=== PATIENT | male | born 1950 | race Caucasian/White ===

== ENCOUNTER → 2016-04-24 | Outpatient (CLI) | payer OTHER, MEDICARE ==
[~2016-04-24] VITALS: Ht 180.3 cm; Wt 89.2 kg
[~2016-04-24] MED LIST: ADULT LOW DOSE81 MG PO; ANDRODERM TD; CALCIUM 500 +1 EAC5 PO; CELEXA40 MG PO; CIALIS10 MG PO; COMPOUND PAIN CREAM; COUMADIN 4 MG TA4 M1 PO; CRESTOR10 MG PO; CYCLOBENZAPRINE5 MG PO; DESYREL50 MG PO; DOXYCYCLINE 10100 MG PO; EFFEXOR XR75 MG PO; ENDOCET 10-3251 EACH PO; ENDOCET 7.5-321 EACH PO; FLEXERIL PO; GABAPENTIN PO; GABAPENTIN100 MG PO; HYDROMORPHONE; INTRATHECAL MED; LASIX 20 MG TAB20 MG PO; LASIX 40 MG TAB40 M2 PO; LIDODERM 5%1 PATC1 TRANSDERM; LIPITOR40 MG PO; LOPRESSOR 50 MG50 M1 PO; MOBIC7.5 MG PO; NEPHROCAPS SOFT1 CAP PO; NEURONTIN 300300 M1 PO; NEURONTIN600 MG PO; NICOTROL INHAL1 CAR1 IH; NITROQUICK0.4 MG SL; NORCO 7.5-3251 EACH PO; NYSTATIN 1100000 U/M SW&SWALLOW; OXYCODONE-ACET1 EAC2 PO; PERCOCET 10-321 EACH PO; PERIDEX15 ML MM; PLAVIX 75 MG TA75 MG PO; PRILOSEC40 MG PO; PROTONIX40 M1 PO; REMERON 30 MG T30 M1 PO; REMERON15 MG PO; SPIRIVA INH; SPIRONOLACT/HCT1 TA1 PO; SYMBICORT80 MCG/4.1 INH; TAMSULOSIN HCL0.4 MG PO; TIZANIDINE HCL4 M1 PO; TIZANIDINE HCL4 MG PO; TOPROL XL25 MG PO; VITAMIN D1000 UNI1 PO; VOLTAREN100 GM TP; WELLBUTRIN SR150 MG PO; XANAX 0.5 MG0.5 M1 PO; ZETIA10 MG PO; ZYBAN150 MG PO
--- NOTE | ~2016-04-24 | HPC ---
[facility] [place] [address] PAIN MANAGEMENT CONSULTATION Name: BRUNO GAYLE [id number] Admission: 04/24/16 Attend Phys: Montez Huber MD Discharge: Date of : 54 Report #: [id number] THIS REPORT FOR: //name// CC: Bennie Huber DATE OF SERVICE: 04/24/2016 Followup visit for chronic pain. The patient has multiple pain generators. Complains of bilateral knee pain with osteoarthritis, complains of chronic low back pain with spondylosis status post surgery, complains of pain into his legs, which is ischemic with poor vascular condition and he continues to smoke. He also has debility generally from cardiac disease. He has an intrathecal pump, which has been helpful in providing major reductions in his day to day pain and he also takes some oral supplement medication gabapentin 600 mg 3 times a day for neuropathic pain and peripheral neuropathy, oxycodone supplementing 1-2 tablets a day to his intrathecal pump, cyclobenzaprine 1-3 tablets a day and he is on antidepressants, venlafaxine, Wellbutrin and takes alprazolam on occasion for severe anxiety. Medications provided by our clinic are the intrathecal drugs as well as gabapentin and the oxycodone. He is under an opioid agreement, which were reviewed in detail today, discussing the importance of safeguarding medication. Today, he reports his pain as an 8-9/10. This is a typical number for the patient who has chronic pain and is someone who does not take very good care of himself. Pain is worse with activities, so he and his stay in house a lot. She also has vascular issues as well. They do not get out to socialize much to dinner or to restoration or other social gatherings. He sees several physicians. PAST MEDICAL HISTORY: Significant for bilateral knee arthroscopies. He has chronic knee pain. He has coronary artery disease followed by Dr. Salgado. He has had angioplasty with stent in 2006. Reportedly has up to 70% blockage bilaterally in lower extremities. He suffers from cataracts. His only joint replacement is the left hip replacement performed in 2009, which was helpful. PHYSICAL EXAMINATION: He is disheveled, depressed affect, moves very slowly walking with cane. His blood pressure is 107/64, heart rate 69, respirations are 14. He is afebrile, 5 feet 11 inches, 196 pounds, BMI of 27.4. When asked to walk in the bruce, he is able to get up and down from a chair independently, but uses a cane for stability. Gait is very slow and shuffling. Examination of the chest reveals normal breath sounds. No inspiratory and expiratory wheezing. Distant sounds are noted in the bases. Cardiac rhythm is regular. Examination of the spine reveals tenderness across the lumbosacral segment. There is pain [address] [address] PAIN MANAGEMENT CONSULTATION Name: BRUNO GAYLE Room #: REG [facility] Mackey#: [id number] Admission: 04/24/16 Attend Phys: Montez Huber MD Discharge: Date of : 54 Report #: [id number] with forward flexion, extension, rotation, and [id number] tilt. Pain is mostly across the axial spine. He also has pain in multiple joints including shoulders, elbows, wrist, knees, hips. He has some restrictions of movement of the lower extremities due to arthropathy. Myofascial tenderness is noted throughout. IMPRESSION: 1. Chronic intractable back pain with spondylosis. 2. Multiple joint osteoarthritis involving knees, hips, shoulders. 3. 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 4. Status post left hip replacement. 5. Management of intrathecal infusion pump with refill today. 6. Management of high risk medications under opioid agreement terms reviewed today and urine drug screen ordered. The patient was counseled again today about smoking cessation and some helpful suggestions were offered. Literature has been provided in the past. DESCRIPTION OF PROCEDURE: Skin was prepped with ChloraPrep, skin anesthetized, 22-gauge non-coring needle advanced in the pump. Old medication removed and discarded. Pump was refilled with a combination of hydromorphone, clonidine, and fentanyl. Reprogramming session was performed. EDELMIRA is now 14 months, will need new pump about a year from now. His low reservoir alarm date for his next refill is on June 14. This may extend out some with the use of his PTM device. He knows how to watch this and we will try to bring him as close to that date as we can. Followup visit is planned in 3 months. <ELECTRONICALLY SIGNED> By: Montez Huber MD 05/25/16 1130 [id number] Montez Huber MD /nt
[2016-04-24 09:17] VITALS: BP 107/64
[2016-04-29 20:10] LABS: EER PAIN MGT INTERP FINAL (())
== END | disposition home or self-care (01) ==
LOC: PAIN 07:02
PROVIDERS: Anesthesiology Pain Medicine
DX: M47.896 Other spondylosis, lumbar region (principal); G89.29 Other chronic pain; M19.90 Unspecified osteoarthritis, unspecified site; M31.9 Necrotizing vasculopathy, unspecified; I73.9 Peripheral vascular disease, unspecified; Z96.642 Presence of left artificial hip joint; Z87.891 Personal history of nicotine dependence

== ENCOUNTER → 2016-08-12 | Outpatient (CLI) | payer OTHER, MEDICARE ==
[~2016-08-12] VITALS: Ht 180.3 cm; Wt 92.1 kg
--- NOTE | ~2016-08-12 | HPC ---
[facility] [address] [place] [address] PAIN MANAGEMENT CONSULTATION Name: BRUNO GAYLE Room #: REG [facility] Fabian.#: [id number] Admission: 08/12/16 Attend Phys: Montez Huber MD Discharge: Date of : 54 Report #: [id number] THIS REPORT FOR: //name// CC: Bennie Huber DATE OF REGISTRATION: 08/12/2016. Followup visit for management of intrathecal infusion pump. The patient returns to pain clinic today for refill of his intrathecal infusion pump, which currently is providing a combination of clonidine, hydromorphone, fentanyl. He also has a PTM device. No adjustment in dose will be necessary today. In addition to his intrathecal pump I provided him with a small amount of adjunct medication, which includes gabapentin 600 mg t.i.d. and uses Percocet 10/325 one half to one tablet b.i.d. His refill interval between intrathecal pump, there refill interval for his intrathecal pump was about 60 as I have agreed to provide him with 120 hydrocodone tablets 1 tablet q. 6 hours, costs prescriptions for him. He feels is expensive, although is only about 25 dollars. This is lot of money to he and his were both struggling with chronic illness. SOCIAL HISTORY: His recent illness has kept her in [facility]. She was threatened with an amputation, but has had some good wound healing and is coming in soon. He is hopeful that this will improve his day-to-day activities and look forward having her back home. Both quit smoking. PHYSICAL EXAMINATION: GENERAL: Pleasant, alert and oriented. He does not appear overmedicated, anxious or depressed today. VITAL SIGNS: His blood pressure is 128/67, heart rate 78, respirations 16. MUSCULOSKELETAL: He moves easily from sitting to standing position, ambulates. He has antalgic features. He has pain across his low back and tenderness. He has swelling and tenderness of his left knee. Bilateral feet reveal allodynia consistent with peripheral neuropathy and/or radiculopathy. IMPRESSION: 1. Chronic intractable low back pain with spondylosis. 2. Multiple joint arthritis. 3. Vasculopathy with history of coronary stents and peripheral vascular disease. He has both peripheral neuropathy as well as vascular pain with claudication. 4. Management of intrathecal pump with refill. 5. Management of high risk medication. Percocet a small dose for breakthrough [facility] [address] [place] [address] PAIN MANAGEMENT CONSULTATION Name: BRUNO GAYLE Room #: REG [facility] Florencio#: [id number] Admission: 08/12/16 Attend Phys: Montez Huber MD Discharge: Date of : 54 Report #: [id number] pain. Currently on covered by his intrathecal pump. We reviewed the terms of his opioid agreement and stressed the importance of safeguarding all medications, taking them as prescribed. Opioid crisis in [place] was discussed briefly as well as CDC guidelines. He has heard this discussion before. PROCEDURE: Refill of intrathecal infusion pump. The patient was placed in the supine position, skin prepped with ChloraPrep. Skin anesthetized and a 22-gauge needle advanced into the intrathecal pump. Old medication removed and discarded. It was refilled with a combination clonidine, hydromorphone, and fentanyl. Reprogramming session was performed. His next refill is on 09/30/2016 or longer given his PTM and I will see him back at that time. Prescriptions were provided again under terms of our agreement. By: [id number] Montez Huber MD /nt
[2016-08-12 09:58] VITALS: BP 128/67
== END ==
LOC: PAIN 07:35
DX: G89.29 Other chronic pain (principal); M19.90 Unspecified osteoarthritis, unspecified site; Z87.891 Personal history of nicotine dependence; M47.9 Spondylosis, unspecified

== ENCOUNTER → 2016-10-03 | Outpatient (CLI) | payer OTHER, MEDICARE ==
[~2016-10-03] VITALS: Ht 180.3 cm; Wt 93.7 kg
[~2016-10-03] MED LIST changes: +POTASSIUM20 PO
--- NOTE | ~2016-10-03 | HPC ---
[facility] [address] [address] PAIN MANAGEMENT CONSULTATION Name: BRUNO GAYLE Room #: REG [facility] Fabian.#: [id number] Admission: 10/03/16 Attend Phys: Montez Huber MD Discharge: Date of : 54 Report #: [id number] THIS REPORT FOR: //name// CC: Bennie Huber DATE OF SERVICE: 10/03/2016 Followup visit for management of intrathecal infusion pump. The patient returns to pain clinic today for renewal of medication in his pump. He is on a complex infusion, which includes clonidine, fentanyl and hydromorphone. The fentanyl added to provide better relief on a rapid action has been useful and he has been on this regimen now for many years. He is in the period of time now where he needs to have his intrathecal pump replaced. He has about 9 months remaining. I have recommended that he follow with [facility] for replacement of his pump and the information has been provided to the patient to make a phone call to their office. Today, he reports that his pain is adequately controlled. He runs a pain score typically 7-8, it is unchanged. Most of his pain is in his back, but he also has arthritic pain in his left knee and also in his feet. The pain in his feet is likely neuropathic. Clonidine was helpful for that pain when it was added to the intrathecal pump. He has been given important information about safeguarding of oral medications, which I also provide him for supplementation of his intrathecal pump. This dose of breakthrough medication is small Percocet 10/325 no more than 1-2 tablets per day. Gabapentin 600 mg 3 times a day has been helpful in supplementing the pump for treatment of his neuropathic and radicular pain. Questions about general health and other physician visits are negative. He reports that he has had no significant changes since his last visit here. He does have coronary artery disease, follows with Dr. Salgado. His is with him today. She has had a wound infection, which become quite severe. She was in [facility] with a threatened knee amputation. She has had wound healing and doing better. It was really that event that encouraged him to finally quit smoking. PHYSICAL EXAMINATION: He is pleasant, alert, oriented, without signs of depression, anxiety or overmedication. Blood pressure is 134/88, heart rate is 80. Chest is clear. Cardiac rhythm is regular. He has mild tenderness across [facility] [address] [place] [address] PAIN MANAGEMENT CONSULTATION Name: BRUNO GAYLE Room #: REG [facility]#: [id number] Admission: 10/03/16 Attend Phys: Montez Huber MD Discharge: Date of : 54 Report #: [id number] his low back. From previous surgery, he has tenderness in both knees and in hips. Decreased sensation below the knee in a stocking distribution consistent with peripheral neuropathy. IMPRESSION: 1. Chronic intractable low back pain with spondylosis and radiculopathy. 2. Peripheral neuropathy. 3. Multi-joint arthritis including hips and knees. 4. Management of intrathecal infusion pump was refilled today and reprogramming. 5. Management of breakthrough oral medication under terms of an opioid agreement. 6. Vasculopathy status post coronary artery stenting procedure and peripheral vascular stent. PROCEDURE: Refill and reprogramming of intrathecal infusion pump. Skin was prepped with ChloraPrep. Skin anesthetized and a 22-gauge non-coring needle advanced in the pump. Old medication removed and discarded. Pump refilled with hydromorphone, fentanyl and clonidine. A reprogramming session was performed. He was given information regarding refill and also, we spent a little extra time today having him listen to the critical and noncritical alarms on his pump, so he will understand if the pump is acting up before we get it replaced. Discharge doses at maximum activation of his intrathecal pump are hydromorphone 7, clonidine 105 mcg, fentanyl 176 mcg per day. Followup visit planned in 1-2 months or he will be seen after pump exchanged by Dr. Mooney. By: [id number] Montez Huber MD /nt
[2016-10-03 11:12] VITALS: BP 127/61
== END | disposition home or self-care (01) ==
LOC: PAIN 06:42
DX: M47.26 Other spondylosis with radiculopathy, lumbar region (principal); G89.29 Other chronic pain; G62.9 Polyneuropathy, unspecified; M31.9 Necrotizing vasculopathy, unspecified; M19.90 Unspecified osteoarthritis, unspecified site; F11.20 Opioid dependence, uncomplicated; Z98.890 Other specified postprocedural states; Z87.891 Personal history of nicotine dependence; Z88.8 Allergy status to other drugs, medicaments and biological substances

== ENCOUNTER → 2016-11-20 | Outpatient (CLI) | payer OTHER, MEDICARE ==
[~2016-11-20] VITALS: Ht 180.3 cm; Wt 94.4 kg
[~2016-11-20] MED LIST changes: +ASPIRIN325 PO; +K-DUR10 MEQ PO
--- NOTE | ~2016-11-20 | HPC ---
[facility] [place] [place] [address] PAIN MANAGEMENT CONSULTATION Name: BRUNO GAYLE Room #: REG [facility].#: [id number] Admission: 11/20/16 Attend Phys: Benjamín Mathews MD Discharge: Date of : 54 Report #: [id number] THIS REPORT FOR: //name// CC: Bennie Mathews DATE OF SERVICE: 11/20/2016 FOLLOWUP COMPLAINT: Here for medication renewal. FOLLOWUP HISTORY: The patient is a 66-year-old gentleman who has been followed in the pain clinic by Dr. Montez Huber. The patient is on a complex medical infusion intrathecally of clonidine, fentanyl and hydromorphone. The patient states that this treatment course has been quite instrumental in helping him. He is able to do a lot more since he has had the intrathecal pump placement. He is scheduled within the next few days to undergo revision/replacement of the intrathecal pump. He is going to see Dr. Mooney at [facility] for replacement. Overall, he feels that things are going reasonably well and would like to have his medications renewed. He feels that the OxyContin and gabapentin are still quite efficacious and would like to have them renewed. He states that he keeps his medications in a controlled environment. PHYSICAL EXAMINATION: Blood pressure is 137/77, pulse 75, respiratory rate 16, room air saturation 95%. Height 5 feet 11 inches, weight 208 pounds, BMI is 29. The patient has not fallen. He does require some assistance with walking and standing. He uses a cane. IMPRESSION: 1. Chronic intractable back pain with spondylosis and radiculopathy. 2. Intrathecal infusion pump -- will have this replaced in the near future with his [facility] doctor. 3. Peripheral neuropathy. 4. Multi joint arthritis including hips and knees. 5. Oral medication for breakthrough pain. 6. Vasculopathy, status post coronary artery stenting procedure and peripheral vascular stents. RECOMMENDATION: We will renew the patient's oxycodone medications 10/325 one p.o. q.i.d. and gabapentin 600 mg 1 p.o. t.i.d. The patient will call us if he has any problems with his medications. We would like to thank you for letting us participate in his care. We hope he continues to improve. By: [id number] Benjamín Mathews MD /nt
[2016-11-20 10:14] VITALS: BP 137/77
== END | disposition home or self-care (01) ==
LOC: PAIN 07:04
DX: M47.20 Other spondylosis with radiculopathy, site unspecified (principal); G62.9 Polyneuropathy, unspecified; M17.0 Bilateral primary osteoarthritis of knee; M16.0 Bilateral primary osteoarthritis of hip; G89.29 Other chronic pain; Z87.891 Personal history of nicotine dependence; Z79.899 Other long term (current) drug therapy

== ENCOUNTER → 2017-01-13 | Outpatient (CLI) | payer OTHER, MEDICARE ==
[~2017-01-13] VITALS: Ht 175.3 cm; Wt 93.7 kg
--- NOTE | ~2017-01-13 | HPC ---
[facility] [place] [address] PAIN MANAGEMENT CONSULTATION Name: BRUNO GAYLE Room #: REG [facility].#: [id number] Admission: 01/13/17 Attend Phys: Montez Huber MD Discharge: Date of : 54 Report #: [id number] THIS REPORT FOR: //name// CC: Bennie Huber DATE OF SERVICE: 01/13/2017 Followup visit for refill of intrathecal infusion pump. The patient is here today with a new pump placed by ____. Things went very well and he is pleased to have that behind him. Continues to use his pump effectively to help with pain. We discussed today if possible slight increase in his medication. He would like to wait and see how he does with the current regimen, which includes hydromorphone and fentanyl, both with the use of a PTM to assist. He has a 40 mL pump and still has 62 days remaining on this pump, so he does not need a refill today. We scheduled him back in the clinic for 03/16/2017. Today, pain is a 7/10. He says he has pain in multiple locations mostly back, left knee, left hip and bilateral feet with neuropathy. Pain is worse with walking, standing and relieved with medication, relaxing and laying down. He says he takes a half of a pain pill first thing in the morning, and this seems to get his days started a little bit better. PHYSICAL EXAMINATION: Blood pressure 105/60, heart rate 81. BMI is 30.5. Pump is in good location and incisions healed nicely with no evidence of infection. IMPRESSION: 1. Chronic intractable back pain with spondylosis and radiculopathy. 2. Peripheral neuropathy. 3. Multi-joint arthritis including hips and knees. 4. Management of oral medication under terms of an opioid agreement, which was reviewed in detail today. 5. Intrathecal pump management, next refill is in 2 months. PLAN: I have renewed his oxycodone now and in 4 weeks I will get him into his next visit. He is using 2 tablets a day along with his pump, so he is well under the CDC guidelines. By: [id number] Montez Huber MD /nt
[2017-01-13 08:52] VITALS: BP 105/60
== END ==
LOC: PAIN 07:10
DX: Z45.1 Encounter for adjustment and management of infusion pump (principal); M47.26 Other spondylosis with radiculopathy, lumbar region; G62.89 Other specified polyneuropathies; G89.29 Other chronic pain; I10 Essential (primary) hypertension; F32.9 Major depressive disorder, single episode, unspecified; Z79.01 Long term (current) use of anticoagulants; Z88.8 Allergy status to other drugs, medicaments and biological substances; Z79.82 Long term (current) use of aspirin; Z79.899 Other long term (current) drug therapy; Z79.891 Long term (current) use of opiate analgesic; Z87.891 Personal history of nicotine dependence

== ENCOUNTER → 2017-03-17 | Outpatient (CLI) | payer OTHER, MEDICARE ==
[~2017-03-17] VITALS: Ht 175.3 cm; Wt 92.9 kg
--- NOTE | ~2017-03-17 | HPC ---
[facility] [place] [address] PAIN MANAGEMENT CONSULTATION Name: BRUNO GAYLE [facility] #: [facility] [id number] Admission: 03/17/17 Attend Phys: Montez Huber MD Discharge: Date of : 54 Report #: [id number] THIS REPORT FOR: //name// CC: Bennie Huber DATE OF SERVICE: 03/17/2017 DATE OF REGISTRATION: 03/17/2017 Followup visit for chronic intractable pain and management of intrathecal infusion pump. One hour in the pain clinic, 30 minutes [id number]. The patient is in the pain clinic today with his . He complains today of pain in his back radiating down into his legs bilaterally along with some sensations of numbness and weakness. He also complains of neck pain radiating into his arm. His pain intensity remains fairly high, it was 7/10 at last, it is 8.5 today. His pump is infusing a combination of hydromorphone, clonidine and fentanyl. He has been on fairly high doses for some time. He has not been evaluated for granuloma and we have talked about it in the past. I have recommended that we consider that as an option today and further evaluation seems warranted. I did discuss with Dr. Prince his pump replacement. They were able to aspirate volume from the catheter per my recollections that usually means that the catheter is functioning fine, but I feel that it is reasonable to evaluate the tip given his increasing symptoms in the lower extremities with fairly diffuse. MEDICATIONS: Reconciled. He was watched and ambulation. He uses a cane, but does not appear to be a fall risk and has not fallen within the last 3 months. He denies use of tobacco. He is supplementing his intrathecal pump with modest dose of oxycodone 10/325, no more than 2-3 tablets per day, equaling 30-45 MME in addition to his intrathecal medicines. He also uses gabapentin, which I have allowed him to increase today from 1800 mg a day to 2400 and he can even trial 3000 mg a day, watching closely for side effects including edema and hypertension. He has some osteoarthritis, which is diffuse, mostly in his right hip and back area. We have discussed remaining active for that. PHYSICAL EXAMINATION: Appears a little bit unkempt today. His blood pressure in the clinic was 132/81, heart rate 78. His BMI is 30.2. He was able to move from sitting to standing position and ambulate with his cane. He has pain diffusely across his neck, radiating into his shoulders and arms to palpation and also tenderness across the mid lumbosacral segment. He has positive straight leg raising discomfort and numbness and tingling bilaterally. His pump is in the left quadrant, it looks good with no tenderness. [address] [address] PAIN MANAGEMENT CONSULTATION Name: BRUNO GAYLE Room #: REG [facility]#: [id number] Admission: 03/17/17 Attend Phys: Montez Huber MD Discharge: Date of : 54 Report #: [id number] IMPRESSION: 1. Chronic low back pain with spondylosis and increasing radiculopathy with numbness as well as pain. 2. Multi-joint arthritis including hips and knees. 3. Cervical pain today with complaints of cervical radiculopathy. 4. History of peripheral neuropathy. 5. Management of intrathecal pump with refill. 6. Management of high risk medications under terms of written opioid agreement. This was reviewed in detail today including his important responsibilities of safeguarding medication. PROCEDURE: He was taken to the treatment room where he was placed prone, skin was prepped with ChloraPrep. Skin was anesthetized over the intrathecal pump. A 22-gauge needle advanced into the pump. An old medication removed and discarded. Expected volume correlating well with that retrieved. It was discarded. Pump was then refilled with a combination of hydromorphone, clonidine and fentanyl. A reprogramming session was performed. I have ordered a lumbar and thoracic MRI scan with a diagnosis of lumbar radiculopathy as well as thoracic intrathecal catheter at T8 for evaluation of the catheter tip. He is experiencing increasing weakness of the lower extremities with risk of myelopathy. Followup visit is planned in the pain clinic after the results of his test are evaluated. By: [id number] Montez Huber MD /nt
[2017-03-17 10:09] VITALS: BP 132/81
== END | disposition home or self-care (01) ==
LOC: PAIN 07:20
DX: Z45.1 Encounter for adjustment and management of infusion pump (principal); M47.26 Other spondylosis with radiculopathy, lumbar region; M17.0 Bilateral primary osteoarthritis of knee; M16.0 Bilateral primary osteoarthritis of hip; Z86.69 Personal history of other diseases of the nervous system and sense organs; Z79.891 Long term (current) use of opiate analgesic; G89.29 Other chronic pain; Z87.891 Personal history of nicotine dependence; Z79.82 Long term (current) use of aspirin; Z79.899 Other long term (current) drug therapy; Z88.1 Allergy status to other antibiotic agents

== ENCOUNTER → 2018-07-06 | Outpatient (CLI) | payer OTHER ==
[~2018-07-06] VITALS: Ht 175.3 cm; Wt 89.7 kg
[2018-07-06 10:30] VITALS: BP 128/59
--- NOTE | 2018-07-06 10:45 | NUR ---
Pain Clinic Assessment: 1. History of Osteoarthritis: YES History of Rheumatoid Arthritis: Not Applicable 2. Height: 5 ft. 9 in. 175.3 cm. Weight: 197.8 lb. oz. 89.722 kg. Patient's BMI: 29.2 3. Vital Signs: BP: 128/59 Pulse: 73 Resp: 16 Temp: 02 Sat: 97 ECG Mon: 4. Pain Intensity: 8 5. Fall Risk: Dizziness: N Needs help standing or walking: Y Fallen in the last 3 months: Y Fall risk comments: 6. Patient on Blood Thinner: Clopidogrel Bisulf(Plavix 7. History of Hypertension: N 8. Opioid Therapy greater than 6 weeks: Y Opiate Contract Signed: 12/13/09 9. Risk Assessment Tool Provided: MOD 10. Functional Assessment Tool: 11. Recreational Drug Use: Never Drug Type: Tobacco Use: Former Smoker Tobacco Type: Amount or Packs/day: How Many Years: Alcohol Use: Yes Frequency: Special Occasions Quant:
--- NOTE | 2018-07-08 15:29 | HPC ---
[facility] [place] [address] PAIN MANAGEMENT CONSULTATION Name: BRUNO GAYLE Room #: REG MONETEspinoza Peralta.#: [id number] Admission: 07/06/18 ������������������ Attend Phys: Montez Huber MD Discharge: ������������������ Date of : 54 Report #: [id number] THIS REPORT FOR: //name// CC: Bennie Huber DATE OF SERVICE: 07/06/2018 CHIEF COMPLAINT: Followup visit for chronic low back pain with spondylosis, management of intrathecal infusion pump with refill and reprogramming. Management of breakthrough opioid medication under terms of written opioid agreement. MME is 45. The patient is here today for refill of his intrathecal pump. He is doing well. He was last seen in March. There have been no hospitalizations and no Emergency Room visits. He has a number of comorbidities including coronary artery disease and has had angioplasty. He has osteoarthritis and has left hip replaced. He is debilitated primarily from chronic pain. He is a former smoker. He has completed an opioid risk tool, is considered low risk for addiction. He is a fall risk and has fallen once or twice in the last several months. Most of this is due to weakness. SOCIAL HISTORY: Denies use of tobacco currently, but does use alcohol. He is cautioned about the use of alcohol in any systemic pain medication or other drugs that may potentiate them. MEDICATIONS: All medications have been reviewed and reconciled from the electronic medical record. He is under treatment for depression with venlafaxine and is on Plavix for his coronary artery disease. PHYSICAL EXAMINATION: GENERAL: He is a pleasant gentleman who has a long hein and wears overalls. VITAL SIGNS: His blood pressure is 132/81, heart rate 78, respirations 20. His BMI is 32. EXTREMITIES: He can move independently from sitting to standing position. He does not use a cane today. He walks, however, with a broad-based gait, is slightly unsteady on his feet. He has limited range of motion of the lumbar spine in flexion, extension, rotation, [id number]-qr-dosr tilt. Tenderness across the lumbosacral segment is present. He has pain in his left knee and left hip and is tender. There is also some pain in the right knee. Both feet are sore and he complains of numbness while walking. IMPRESSION: [facility] [address] [place] [address] PAIN MANAGEMENT CONSULTATION Name: BRUNO GAYLE Room #: REG [facility] Fabian.#: [id number] Admission: 07/06/18 ������������������ Attend Phys: Montez Huber MD Discharge: ������������������ Date of : 54 Report #: [id number] 1. Chronic low back pain with spondylosis and radiculopathy. 2. Osteoarthritis. 3. Peripheral neuropathy. 4. Management of intrathecal pump with refill. 5. Management of high risk medications under terms of an opioid agreement. He is grateful for the pain relief he gets from the oxycodone, which he takes up to 3 times a day. He is able to do more around the house and this is important now that his has had an amputation for vasculopathy. He understands the importance of safeguarding his medication and denies any current side effects. I renewed his oxycodone for his diffuse arthritis. The intrathecal pump refilled for chronic low back pain. PROCEDURE: Skin was prepped with ChloraPrep and anesthetized. A 22-gauge non-coring needle advanced into the old pump. Old medication removed and discarded per protocol. Pump refilled then with hydromorphone 20 mg per mL. His daily dose was slightly increased to 6.1 mg per day. Refill interval is about 4 months. I plan to see him back around 10/15/2018. His medications were renewed with release dates. Followup visit planned in October. ��������������������������������������������� <ELECTRONICALLY SIGNED> ���������������������������������������� By: Montez Huber MD ��������������������������������������������� 07/08/18 1529 [id number] Montez Huber MD /nt
== END | disposition home or self-care (01) ==
LOC: PAIN 06:55
DX: Z45.1 Encounter for adjustment and management of infusion pump (principal); M47.26 Other spondylosis with radiculopathy, lumbar region; G89.29 Other chronic pain; G62.9 Polyneuropathy, unspecified; I25.10 Atherosclerotic heart disease of native coronary artery without angina pectoris; M16.12 Unilateral primary osteoarthritis, left hip; Z79.891 Long term (current) use of opiate analgesic; Z96.642 Presence of left artificial hip joint; Z87.891 Personal history of nicotine dependence; Z88.8 Allergy status to other drugs, medicaments and biological substances; Z79.82 Long term (current) use of aspirin

== ENCOUNTER → 2018-10-21 | Outpatient (CLI) | payer OTHER ==
[~2018-10-21] VITALS: Ht 180.3 cm; Wt 78.5 kg
[~2018-10-21] MED LIST changes: +CYMBALTA30 MG PO; +DEMADEX20 MG PO; +IRON325 PO; +SINGULAIR 10 MG10 M1 PO; +SYMBICORT160 MCG/4. INH; +VENTOLIN HFA 1818 GM INH
[2018-10-21 10:09] VITALS: BP 111/69
--- NOTE | 2018-10-21 10:10 | NUR ---
Pain Clinic Assessment: 1. History of Osteoarthritis: YES History of Rheumatoid Arthritis: Not Applicable 2. Height: 5 ft. 11 in. 180.3 cm. Weight: 173.0 lb. oz. 78.472 kg. Patient's BMI: 24.1 3. Vital Signs: BP: 111/69 Pulse: 84 Resp: 16 Temp: 02 Sat: 96 ECG Mon: 4. Pain Intensity: 8 5. Fall Risk: Dizziness: N Needs help standing or walking: N Fallen in the last 3 months: Y Fall risk comments: 6. Patient on Blood Thinner: Clopidogrel Bisulf(Plavix 7. History of Hypertension: Y 8. Opioid Therapy greater than 6 weeks: Y Opiate Contract Signed: 12/13/09 9. Risk Assessment Tool Provided: MOD 10. Functional Assessment Tool: 11. Recreational Drug Use: Never Drug Type: Tobacco Use: Former Smoker Tobacco Type: Amount or Packs/day: How Many Years: Alcohol Use: Yes Frequency: Special Occasions Quant:
--- NOTE | 2018-10-22 09:41 | HPC ---
[facility] [place] [address] PAIN MANAGEMENT CONSULTATION Name: BRUNO GAYLE Room #: REG [facility] [id number] Admission: 10/21/18 ������������������ Attend Phys: Taylor Chavez Discharge: ������������������ Date of : 54 Report #: [id number] THIS REPORT FOR: //name// CC: Taylor Scott DATE OF SERVICE: 10/21/2018 CHIEF COMPLAINT: Chronic low back pain with spondylosis. HISTORY OF PRESENT ILLNESS: This is a 68-year-old gentleman who returns to the pain clinic today for refill of his oral pain medications that he uses to help treat his ongoing chronic pain. He tells me he has multiple pain generators including his lower back, left knee, left hip, right leg, bilateral feet and complaining of some right thoracic pain today. The patient tells me his pain score is an 8/10, which is a fairly average number for him. He does have intrathecal pump that he uses but he tells me he is not using his PTM currently. He feels that increases his swelling, so therefore he is only taking his oral pain pills. He is to have his intrathecal pump refilled next week by Dr. Montez Huber. The patient tells me that his pain is worse with activity, standing and walking, better with relaxing and lying down. He is currently on 4 liters of oxygen and using a cane when he walks. He tells me that he does have problems with constipation and uses a couple of different stool softeners to help with that. ALLERGIES: PEPCID. CURRENT LIST OF MEDICATIONS: Singulair 10 mg at bedtime, iron daily, Demadex 20 mg b.i.d., Advair, Symbicort, Cymbalta 30 mg daily, oxycodone 10/325 three times a day, gabapentin 600 mg 2 tabs in the morning and 1 at night, potassium 50 mEq daily, aspirin, Peridex p.r.n., Os-Hair, Protonix, Voltaren, Lipitor 80 mg daily and Plavix 75 mg daily. PQRS: 1. He has osteoarthritic changes in his lumbar spine and his hips. He denies any rheumatoid arthritis. 2. Height is 5 feet 11 inches, weight is 173 and BMI is 24. 3. Vital signs: Blood pressure 111/69, pulse is 84, respirations 16 and oxygen sat is 96 on 4 liters of oxygen. 4. Pain score is 8/10. 5. Fall risk. Denies dizziness. Does use a cane for walking, has fallen in the last 3 months. 6. The patient is on Plavix, a blood thinner and does take medicine for hypertension. 7. Opioid therapy is greater than 6 weeks; therefore, an opioid signed contract is on the chart. [address] [address] PAIN MANAGEMENT CONSULTATION Name: BRUNO GAYLE Room #: REG [facility]ana#: [id number] Admission: 10/21/18 ������������������ Attend Phys: Taylor Chavez Discharge: ������������������ Date of : 54 Report #: [id number] 8. Risk assessment is moderate. Functional assessment is 52/70. 9. Recreational drug use, he denies. He states he is a former smoker but smells very strongly of tobacco smoke and he does drink alcohol occasionally. We did check the prescription monitoring system. The patient is due to fill on his medications and we will check a random drug screen on him today. Per our records, it has been greater than a year. PHYSICAL EXAMINATION: GENERAL: This is a pleasant gentleman who is alert and orientated. His affect is appropriate. Smells very strongly of cigarette smoke, though he denies smoking. He is wearing oxygen at 4 liters, placing his current pain score today at 8/10. HEENT: Normocephalic and atraumatic. Extraocular eye muscles are intact. Mucous membranes are moist. EXTREMITIES: He can move independently from sitting to standing position. He does use a cane with walking. He does have unsteady gait. He has limited range of motion in his lumbar spine with flexion, extension and rotation. He has tenderness today in his right thoracic spine and intercostal area of the T8 through T10 distribution. He has tenderness across his lumbosacral segment as well. Pain radiates down his left leg to his feet and also complains of some right knee discomfort. No swelling noted in knees or feet. IMPRESSION: 1. Chronic low back pain with spondylosis and radiculopathy. 2. Osteoarthritis. 3. Peripheral neuropathy. 4. Management of intrathecal pump. 5. Management of high risk medication management under terms of written opioid agreement. 6. Right intercostal pain. We reviewed the fact that opiate medications are being used to provide analgesia adequate to support activities of daily living, not attempting to achieve a specific pain score on the 0-10 Visual Analog Scale. The current opiate medications are providing sufficient analgesia to allow the patient to participate in activities of daily living. The patient is not exhibiting any aberrant behavior suggestive of drug diversion. The patient is not having any adverse reactions to medications. The patient is not suffering from daytime somnolence or mental acuity changes. The patient is managing opiate-induced constipation with appropriate eovt-gvs-nyebgwc agents and dietary considerations. The patient was counseled on concern for caution with operating a motor vehicle while using opiate medications. A physical exam was performed and the patient's functional status was evaluated. All patients with back pain were advised against the bed rest greater than 4 [facility] [address] [place] [address] PAIN MANAGEMENT CONSULTATION Name: BRUNO GAYLE Room #: REG [facility]#: [id number] Admission: 10/21/18 ������������������ Attend Phys: Taylor Chavez Discharge: ������������������ Date of : 54 Report #: [id number] days and were advised to return to normal activities. Pain score assessment was noted and the treatment plan was reviewed with the patient. All current medications, both prescribed and OTC were reviewed and reconciled on the electronic medical record. Tobacco screening was accomplished and smoking cessation was advised when indicated. BMI was noted and diet/exercise modification was recommended for all patients following outside normal parameters. I reviewed with the patient today their responsibilities to safeguard prescription medications, reviewed their responsibility to utilize medications only as prescribed by the physician. They are to seek and receive pain medications only from 1 physician group ([facility]). They are to use 1 pharmacy and keep the clinic informed if they change pharmacies. Their responsibilities include making followup visits in a timely fashion and to avoid abrupt discontinuation of medication usage. Their responsibilities further include bringing their medications (bottles from the pharmacy with residual pills) to the visit for possible confirmation of pill counts and the patient understands it is their responsibility to submit to random drug screens to ensure both that the medications prescribed are present, and that no other controlled substances are present. All prescriptions provided today were generated electronically. PLAN: 1. We discussed treatment options with the patient today, much discussion about decreasing smoking. He tells us that he does not smoke, but he just lives with smokers. We encouraged him not to let them be around when he is having his oxygen on and the dangers that this presents. The patient verbalizes understanding. 2. The patient does complain of some thoracic pain today at the intercostal area. Dr. Mathews examined the patient feels that it is just a flare and the patient will continue to use his Biofreeze/Bengay. 3. Script was given today for oxycodone 10/325, #90 for 1 month. The patient will be seeing Dr. Montez Huber next week for his intrathecal pump fill and will get his other prescriptions at that time per the patient's request. According to the CDC, his morphine milliequivalent is 45 excluding his pump that is only oral pain medicines. 4. The patient is seen in collaboration today with Dr. Alli Mathews who did examine the patient as well today. ��������������������������������������������� <ELECTRONICALLY SIGNED> ���������������������������������������� By: Taylor Chavez ��������������������������������������������� 10/22/18 0941 [id number] Taylor Chavez /alessandra
== END ==
LOC: PAIN 06:56
DX: M47.26 Other spondylosis with radiculopathy, lumbar region (principal); M19.90 Unspecified osteoarthritis, unspecified site; G62.9 Polyneuropathy, unspecified; R07.82 Intercostal pain; Z79.891 Long term (current) use of opiate analgesic; Z79.899 Other long term (current) drug therapy; Z97.8 Presence of other specified devices

== ENCOUNTER → 2018-10-26 | Outpatient (CLI) | payer OTHER ==
[~2018-10-26] VITALS: Ht 175.3 cm; Wt 78.7 kg
--- NOTE | ~2018-10-26 | HPC ---
[facility] [place] [address] PAIN MANAGEMENT CONSULTATION Name: BRUNO GAYLE Room #: REG [facility].#: [id number] Admission: 10/26/18 ������������������ Attend Phys: Montez Huber MD Discharge: ������������������ Date of : 54 Report #: [id number] THIS REPORT FOR: //name// CC: Bennie Huber DATE OF SERVICE: 10/26/2018 Followup visit for chronic intractable pain with management of intrathecal infusion pump The patient returns to the pain clinic today and has need for a refill of his intrathecal infusion pump infusing hydromorphone, clonidine and fentanyl. He uses a PTM device. Maximum daily, hydromorphone is 7.4 mg. He has about 100 days between refills. PQRS review is positive for diffuse osteoarthritis involving hips, knees, shoulders and back. His BMI is 25. Blood pressure 118/61, heart rate 83, respirations 14 and O2 sat 96 on 2 liters of nasal cannula. He has COPD. He scores his overall pain at an 8/10 most of it in his back. He has some need of help with standing and walking, uses a cane, but has not fallen in the last 3 months. He is on blood thinner, Plavix and is under treatment for hypertension as well as COPD. He is on an opioid agreement signed as early as 2009. He has been careful in his use. He is considered a moderate risk for misuse of medication, but has been on time for all prescriptions. There have been no unexpected entries in the PDMP, prescription drug monitoring program and drug screens have been appropriate for his use. He denies use of tobacco at this time and drinks an occasional mixed alcoholic beverage. I told him to be cautious particularly in his debilitated state. PHYSICAL EXAMINATION: GENERAL: He is pleasant, alert and oriented, does not appear overmedicated. VITAL SIGNS: His blood pressure is 118/61, heart rate ____, respirations 14. MUSCULOSKELETAL: Moves independently from sitting to standing position, walks with a cane and has marked antalgic features. LUNGS: Breath sounds are distant. CARDIAC: Rhythm is regular. ABDOMEN: Soft. Intrathecal pump is in the left lower quadrant. PROCEDURE: Skin was prepped with ChloraPrep. Skin anesthetized and 22-gauge non-coring needle advanced into the pump. Old medication removed and discarded. Pump was then refilled with 39.5 mL of hydromorphone, clonidine and fentanyl and reprogramming session performed. I left his medications at current doses. [address] [address] PAIN MANAGEMENT CONSULTATION Name: BRUNO GAYLE Room #: REG [facility].#: [id number] Admission: 10/26/18 ������������������ Attend Phys: Montez Huber MD Discharge: ������������������ Date of : 54 Report #: [id number] There will be no changes. His next refill is scheduled for 02/03. Oral medications were ordered at today's visit to extend his oxycodone for breakthrough, which he takes up to 3 times a day. He carefully monitors his medications under terms of our written agreement and will safeguard his medications also by our agreement. Followup visit scheduled in 3 months. ��������������������������������������������� ���������������������������������������� By: ��������������������������������������������� [id number] Montez Huber MD /nt
[2018-10-26 10:43] VITALS: BP 118/61
--- NOTE | 2018-10-26 10:56 | NUR ---
Pain Clinic Assessment: 1. History of Osteoarthritis: YES History of Rheumatoid Arthritis: Not Applicable 2. Height: 5 ft. 9 in. 175.3 cm. Weight: 173.4 lb. oz. 78.654 kg. Patient's BMI: 25.6 3. Vital Signs: BP: 118/61 Pulse: 83 Resp: 14 Temp: 02 Sat: 96 ECG Mon: 4. Pain Intensity: 8 5. Fall Risk: Dizziness: N Needs help standing or walking: Y Fallen in the last 3 months: N Fall risk comments: 6. Patient on Blood Thinner: Clopidogrel Bisulf(Plavix 7. History of Hypertension: Y 8. Opioid Therapy greater than 6 weeks: Y Opiate Contract Signed: 12/13/09 9. Risk Assessment Tool Provided: MOD 10. Functional Assessment Tool: 11. Recreational Drug Use: Never Drug Type: Tobacco Use: Former Smoker Tobacco Type: Amount or Packs/day: How Many Years: Alcohol Use: Yes Frequency: Monthly Quant: 1-2 MIXED DRINK OCCASIONALLY
== END | disposition home or self-care (01) ==
LOC: PAIN 10:09
DX: Z45.1 Encounter for adjustment and management of infusion pump (principal); G89.29 Other chronic pain; M16.0 Bilateral primary osteoarthritis of hip; M17.0 Bilateral primary osteoarthritis of knee; M19.012 Primary osteoarthritis, left shoulder; M19.011 Primary osteoarthritis, right shoulder; J44.9 Chronic obstructive pulmonary disease, unspecified; I10 Essential (primary) hypertension; Z79.899 Other long term (current) drug therapy; Z98.890 Other specified postprocedural states; Z87.891 Personal history of nicotine dependence; Z88.8 Allergy status to other drugs, medicaments and biological substances; Z79.82 Long term (current) use of aspirin

== ENCOUNTER → 2019-01-14 | Outpatient (CLI) | payer OTHER ==
[~2019-01-14] VITALS: Ht 175.3 cm; Wt 84.4 kg
[2019-01-14 13:14] VITALS: BP 134/61
--- NOTE | 2019-01-14 13:23 | NUR ---
Pain Clinic Assessment: 1. History of Osteoarthritis: 'all over" History of Rheumatoid Arthritis: Not Applicable 2. Height: 5 ft. 9 in. 175.3 cm. Weight: 186.0 lb. oz. 84.369 kg. Patient's BMI: 27.5 3. Vital Signs: BP: 134/61 Pulse: 60 Resp: 14 Temp: 02 Sat: 97 ECG Mon: 4. Pain Intensity: 8 5. Fall Risk: Dizziness: N Needs help standing or walking: N Fallen in the last 3 months: N Fall risk comments: 6. Patient on Blood Thinner: Clopidogrel Bisulf(Plavix 7. History of Hypertension: Y 8. Opioid Therapy greater than 6 weeks: Y Opiate Contract Signed: 12/13/09 9. Risk Assessment Tool Provided: MOD 10. Functional Assessment Tool: 11. Recreational Drug Use: Never Drug Type: Tobacco Use: Former Smoker Tobacco Type: Amount or Packs/day: How Many Years: Alcohol Use: Yes Frequency: Weekly Quant:
--- NOTE | 2019-01-25 07:55 | HPC ---
[facility] [address] [place] [address] PAIN MANAGEMENT CONSULTATION Name: BRUNO GAYLE Room #: REG [facility] Narendra#: [id number] Admission: 01/14/19 Attend Phys: Taylor Chavez Discharge: Date of : 54 Report #: [id number] THIS REPORT FOR: //name// CC: Taylor Scott DATE OF SERVICE: 01/14/2019 CHIEF COMPLAINT: Chronic intractable pain with management of intrathecal infusion pump. HISTORY OF PRESENT ILLNESS: This is a 68-year-old gentleman who returns to the pain clinic today for a refill of his medications that he uses along with his therapy of intrathecal pump to help treat his ongoing low back pain and bilateral feet pain. Today, he reports a pain of 8/10. It is a numbness, tingling, stabbing, throbbing pain that is worse with activity and walking. He believes the medication and the intrathecal pump as well as relaxation and lying down are beneficial in controlling his pain. The patient is also wearing 3 liters nasal cannula, though does smell strongly of cigarette smoke. He tells me he is not smoking at all, but does live with people that do smoke. The patient is also wondering if he can have adjustments made with his medication or his pump, so he does not have to come for pump refills and for medication refills. ALLERGIES: PEPCID. CURRENT LIST OF MEDICATIONS: Gabapentin 600 mg 3 times a day, oxycodone 10/325 three times a day, Singulair 10 mg at bedtime, iron 325 mg daily, Demadex 20 mg b.i.d., Symbicort, Cymbalta 30 mg daily, potassium 50 mEq daily p.r.n., aspirin 325 mg, Os-Hair daily, Protonix 40 mg b.i.d., Voltaren gel as needed, Lipitor 80 mg daily, Flexeril p.r.n., Plavix 75 mg daily. PQRS: 1. He has diffuse osteoarthritis involving his hips, knees, shoulders and back. Denies rheumatoid arthritis. 2. Height is 5 feet 9 inches, weight is 186, BMI is 27. 3. Vital signs, 134/61, pulse is 60, respirations 14, oxygen sat is 97. 4. Pain score is 8/10. 5. Denies dizziness, does not need help walking or standing, has not fallen in the last 3 months. 6. The patient is on Plavix and also takes medicine for hypertension. 7. Opioid therapy is greater than 6 weeks; therefore, an opioid signed contract is on the chart. Risk assessment is moderate. Functional assessment is 52/70. 8. Recreational drug use, he denies. He is a former smoker, wearing oxygen, and [place] [address] PAIN MANAGEMENT CONSULTATION Name: BRUNO GAYLE Room #: REG [facility] Narendra#: [id number] Admission: 01/14/19 Attend Phys: Taylor Chavez Discharge: Date of : 54 Report #: [id number] According to the prescription monitoring system, the patient is due for medication refill and there is a random drug screen on the chart that is appropriate as well. PHYSICAL EXAMINATION: GENERAL: This is a pleasant and alert 68-year-old gentleman, rating his pain score at 8/10. He does not appear overmedicated. He is smelling of smoke today. HEENT: Normocephalic, atraumatic. Extraocular eye muscles are intact. Mucous membranes are moist. He has nasal cannula on. MUSCULOSKELETAL: He moves independently from the sitting to standing position, walks with a cane and an antalgic gait, limping, he reports left leg shorter than the right. He has tenderness across the lumbosacral segment. He has bilateral feet tenderness as well. IMPRESSION: 1. Chronic low back pain with spondylosis and radiculopathy. 2. Osteoarthritis. 3. Peripheral neuropathy. 4. Management of intrathecal pump. 5. Management of high risk medications under terms of written opioid agreement. 6. Supplemental oxygen therapy. We reviewed the fact that opiate medications are being used to provide analgesia adequate to support activities of daily living, not attempting to achieve a specific pain score on the 0-10 Visual Analog Scale. The current opiate medications are providing sufficient analgesia to allow the patient to participate in activities of daily living. The patient is not exhibiting any aberrant behavior suggestive of drug diversion. The patient is not having any adverse reactions to medications. The patient is not suffering from daytime somnolence or mental acuity changes. The patient is managing opiate-induced constipation with appropriate tedh-svr-[id number] agents and dietary considerations. The patient was counseled on concern for caution with operating a motor vehicle while using opiate medications. A physical exam was performed and the patient's functional status was evaluated. All patients with back pain were advised against the bed rest greater than 4 days and were advised to return to normal activities. Pain score assessment was noted and the treatment plan was reviewed with the patient. All current medications, both prescribed and OTC were reviewed and reconciled on the electronic medical record. Tobacco screening was accomplished and smoking cessation was advised when indicated. BMI was noted and diet/exercise modification was recommended for all patients following outside normal parameters. [address] [address] PAIN MANAGEMENT CONSULTATION Name: BRUNO GAYLE Room #: REG [facility]#: [id number] Admission: 01/14/19 Attend Phys: Taylor Chavez Discharge: Date of : 54 Report #: [id number] I reviewed with the patient today their responsibilities to safeguard prescription medications, reviewed their responsibility to utilize medications only as prescribed by the physician. They are to seek and receive pain medications only from 1 physician group ( [facility]). They are to use 1 pharmacy and keep the clinic informed if they change pharmacies. Their responsibilities include making followup visits in a timely fashion and to avoid abrupt discontinuation of medication usage. Their responsibilities further include bringing their medications (bottles from the pharmacy with residual pills) to the visit for possible confirmation of pill counts and the patient understands it is their responsibility to submit to random drug screens to ensure both that the medications prescribed are present, and that no other controlled substances are present. All prescriptions provided today were generated electronically. PLAN: 1. We discussed treatment options with the patient today. We will refill his oxycodone 10/325, patient takes 3 times a day, #90 given for today, 4-week and 8-week. The patient will return in 1 month for his intrathecal pump refill. At that time, I would like to have him be given an 8-week prescription of his Percocet to be released from that date. Hopefully then, that will enable him to make his medicines last between pump refills, not requiring him to come at different dates. 2. The patient tells me he does use his PTM on a regular basis at least 3 times a day. He is unable to use the fourth one since it is set for 4 every 6 hours. He is wondering if he may still have the 4, but have it decreased to 4 hours in between usages, therefore enabling him to use all 4 in one 1 day. He believes that will also cut down on his oral pain medicines. I instructed him that I will leave a note for his next fill but also for him to mention that when he is here in February. 3. I encouraged the patient not to be around people that smoke since he is wearing oxygen at all times. He does report that he does no longer smoke, though he is smelling very strongly of cigarette smoke today. I explained to him the risks and hazards of oxygen and fire. He verbalizes understanding. He will try to get family members to not smoke near him. 4. The patient is seen in collaboration with Dr. Montez Huber who did see the patient today. The patient has made an appointment for 02/15 for his intrathecal pump refill. <ELECTRONICALLY SIGNED> By: Taylor Chavez 01/25/19 [id number] Taylor Chavez /alessandra
== END ==
LOC: PAIN 06:57
DX: M54.5 Low back pain (principal); M19.90 Unspecified osteoarthritis, unspecified site; G62.9 Polyneuropathy, unspecified; Z79.891 Long term (current) use of opiate analgesic; Z79.899 Other long term (current) drug therapy

== ENCOUNTER → 2019-02-15 | Outpatient (CLI) | payer OTHER ==
[~2019-02-15] VITALS: Ht 175.3 cm; Wt 84.4 kg
--- NOTE | ~2019-02-15 | HPC ---
[facility] [place] [address] PAIN MANAGEMENT CONSULTATION Name: BRUNO GAYLE Room #: REG [facility].#: [id number] Admission: 02/15/19 Attend Phys: Montez Huber MD Discharge: Date of : 54 Report #: [id number] THIS REPORT FOR: //name// CC: SD Huber DATE OF SERVICE: 02/15/2019 Followup for refill and reprogramming intrathecal pump. The patient returns to pain clinic today for refill of his intrathecal pump. He is a longstanding patient of our clinic. Despite the fact that he is wearing 3 liters nasal cannula, he smells strongly of cigarette smoke as was his last visit. He was counseled. His pump infuses hydromorphone, clonidine and fentanyl. He is asking for an increase in his PTM device, which I have agreed to provide him today. The basal rate; however, will remain unchanged at 6.1 mg per day, hydromorphone, clonidine 91 mcg a day, fentanyl 150 mcg a day. All medications were reviewed and reconciled. PHYSICAL EXAMINATION: GENERAL: He is in his usual overalls. He smells heavily of tobacco smoke. Denies use of tobacco; however. HEENT: Pupils are equal, round, react to light. EOMs are intact. Mucous membranes are moist. EXTREMITIES: Moves independently from sitting to standing position. His gait is antalgic. He is dyspneic. CHEST: Shows distant breath sounds. CARDIAC: Rhythm is regular. BACK: Spine is tender across the lumbosacral segment. He almost has bilateral positive straight leg raising discomfort. His gait is antalgic with a cane and he is a fall risk. IMPRESSION: 1. Chronic low back pain with spondylosis and radiculopathy. 2. Osteoarthritis. 3. Peripheral neuropathy. 4. Chronic use of intrathecal medications for pain management. 5. Chronic obstructive pulmonary disease, on oxygen therapy, continuing to smoke. He was counseled several times during his visit. 6. Management of chronic opioids to supplement the intrathecal pump. I do not want to increase his infusion further. He complains of pain without it and is now highly tolerant to opioids. [facility] [address] [place] [address] PAIN MANAGEMENT CONSULTATION Name: BRUNO GAYLE Room #: REG [facility]#: [id number] Admission: 02/15/19 Attend Phys: Montez Huber MD Discharge: Date of : 54 Report #: [id number] I reviewed his prescriptions on the prescription drug monitoring program and there are no unexpected entries. I prescribed his oxycodone. Dr. Mathews has done 1-2 other occasions. He has no other opioid prescribers outside of our clinic. Dr. Scott has prescribed gabapentin for him in the past. He is on Plavix. He is not an ideal candidate for an epidural injection, would have to go off and is at risk. I do believe, however, we should try something other than increasing his medication beyond today to help him with severe pain in his leg. PROCEDURE: Refill and reprogramming. Skin was prepped with ChloraPrep. Skin anesthetized and a 22-gauge non-coring needle advanced in the pump. Old medication removed and discarded. There are no unexpected discrepancies. Pump was then refilled and reprogrammed from 4-6 PTM activations a day. This will allow for 91 days with his intrathecal infusion between refills. His next pump replacement scheduled for 2023. Followup visit planned in the pain clinic 90 days. By: [id number] 0505 Montez Huber MD /nt
[2019-02-15 11:39] VITALS: BP 137/84
--- NOTE | 2019-02-15 11:45 | NUR ---
Pain Clinic Assessment: 1. History of Osteoarthritis: 'all over" History of Rheumatoid Arthritis: Not Applicable 2. Height: 5 ft. 9 in. 175.3 cm. Weight: 186.0 lb. oz. 84.369 kg. Patient's BMI: 27.5 3. Vital Signs: BP: 137/84 Pulse: 73 Resp: 16 Temp: 02 Sat: 96 ECG Mon: 4. Pain Intensity: 8 5. Fall Risk: Dizziness: N Needs help standing or walking: N Fallen in the last 3 months: N Fall risk comments: 6. Patient on Blood Thinner: Clopidogrel Bisulf(Plavix 7. History of Hypertension: Y 8. Opioid Therapy greater than 6 weeks: Y Opiate Contract Signed: 12/13/09 9. Risk Assessment Tool Provided: MOD 10. Functional Assessment Tool: 11. Recreational Drug Use: Never Drug Type: Tobacco Use: Former Smoker Tobacco Type: Amount or Packs/day: How Many Years: Alcohol Use: Yes Frequency: Quant:
== END | disposition home or self-care (01) ==
LOC: PAIN 06:51
DX: Z45.1 Encounter for adjustment and management of infusion pump (principal); G89.29 Other chronic pain; M47.26 Other spondylosis with radiculopathy, lumbar region; J44.9 Chronic obstructive pulmonary disease, unspecified; M19.90 Unspecified osteoarthritis, unspecified site; G62.9 Polyneuropathy, unspecified; Z79.891 Long term (current) use of opiate analgesic; Z98.890 Other specified postprocedural states; Z79.899 Other long term (current) drug therapy; Z88.8 Allergy status to other drugs, medicaments and biological substances; Z79.82 Long term (current) use of aspirin

== ENCOUNTER → 2019-03-22 | Outpatient (CLI) | payer OTHER ==
[~2019-03-22] VITALS: Ht 175.3 cm; Wt 87.3 kg
--- NOTE | ~2019-03-22 | P ---
[facility] [place] [address] [place] [address] PROCEDURE REPORT Name: BRUNO GAYLE Room #: REG [facility]#: [id number] Admission: 03/22/19 Attend Phys: Montez Huber MD Discharge: Date of : 54 Report #: [id number] THIS REPORT FOR: //name// CC: Bennie Huber DATE OF SERVICE: 03/22/2019 PROCEDURE NOTE DIAGNOSIS: Chronic low back pain, post laminectomy syndrome with radiculopathy. INDICATIONS FOR PROCEDURE: The patient was seen in the Pain Clinic 1 month ago. We discussed the use of an epidural steroid injection to try and help control the pain. He is on relatively high doses of intrathecal narcotic and clonidine. I had changed his medication and he felt that there was some improvement with this medication change as well. Pain persists, radiating in the L5-S1 distribution of the left leg. There is some pain on the right as well. Procedure explained, the risks and benefits, and he has signed an informed consent to go forward. He has stopped his Plavix in anticipation of the injection. PROCEDURE: Lumbar epidural injection L5-S1 under fluoroscopic guidance. DESCRIPTION OF PROCEDURE: He was placed in the prone position. Skin was prepped with ChloraPrep. Skin was anesthetized to the left of midline. A 20-gauge Tuohy epidural needle was advanced in the midline using loss of resistance. There was no blood nor CSF aspirated. A 1 mL of Omnipaque demonstrated spread throughout the epidural space; was followed then by 3 mL of 0.5% lidocaine mixed with 80 mg of triamcinolone. He tolerated the procedure well. There were no complications. He was taken to the recovery room for observation for a short period of time and discharged. Followup visit planned in 2019 for ongoing management of his intrathecal pump. By: 1522 0058 Montez Huber MD /nt
[2019-03-22 14:24] VITALS: BP 124/58
--- NOTE | 2019-03-22 14:34 | NUR ---
Pain Clinic Assessment: 1. History of Osteoarthritis: 'all over" History of Rheumatoid Arthritis: Not Applicable 2. Height: 5 ft. 9 in. 175.3 cm. Weight: 192.4 lb. oz. 87.272 kg. Patient's BMI: 28.4 3. Vital Signs: BP: 124/58 Pulse: 64 Resp: 14 Temp: 02 Sat: 95 ECG Mon: 4. Pain Intensity: 8 5. Fall Risk: Dizziness: N Needs help standing or walking: Y Fallen in the last 3 months: N Fall risk comments: 6. Patient on Blood Thinner: Clopidogrel Bisulf(Plavix 7. History of Hypertension: Y 8. Opioid Therapy greater than 6 weeks: Y Opiate Contract Signed: 12/13/09 9. Risk Assessment Tool Provided: MOD 10. Functional Assessment Tool: 11. Recreational Drug Use: Never Drug Type: Tobacco Use: Former Smoker Tobacco Type: Amount or Packs/day: How Many Years: Alcohol Use: Yes Frequency: Monthly Quant: 1
== END | disposition home or self-care (01) ==
LOC: PAIN 06:56
DX: M54.16 Radiculopathy, lumbar region (principal); M96.1 Postlaminectomy syndrome, not elsewhere classified; G89.29 Other chronic pain; Z98.890 Other specified postprocedural states; Z87.891 Personal history of nicotine dependence; Z88.8 Allergy status to other drugs, medicaments and biological substances; Z79.82 Long term (current) use of aspirin; Z79.899 Other long term (current) drug therapy

== ENCOUNTER → 2019-05-13 | Outpatient (CLI) | payer OTHER ==
[~2019-05-13] VITALS: Ht 175.3 cm; Wt 85.5 kg
[~2019-05-13] MED LIST changes: +PANTOPRAZOLE SO40 M1 PO; +ZENPEP DR 25,01 EAC1 PO
[2019-05-13 12:48] VITALS: BP 128/59
--- NOTE | 2019-05-13 13:04 | NUR ---
Pain Clinic Assessment: 1. History of Osteoarthritis: 'all over" History of Rheumatoid Arthritis: Not Applicable 2. Height: 5 ft. 9 in. 175.3 cm. Weight: 188.6 lb. oz. 85.548 kg. Patient's BMI: 27.8 3. Vital Signs: BP: 128/59 Pulse: 59 Resp: 16 Temp: 02 Sat: 97 ECG Mon: 4. Pain Intensity: 8 5. Fall Risk: Dizziness: N Needs help standing or walking: Y Fallen in the last 3 months: N Fall risk comments: 6. Patient on Blood Thinner: Clopidogrel Bisulf(Plavix 7. History of Hypertension: Y 8. Opioid Therapy greater than 6 weeks: Y Opiate Contract Signed: 12/13/09 9. Risk Assessment Tool Provided: MOD 10. Functional Assessment Tool: 11. Recreational Drug Use: Never Drug Type: Tobacco Use: Former Smoker Tobacco Type: Amount or Packs/day: How Many Years: Alcohol Use: Yes Frequency: Monthly Quant: 1-2
--- NOTE | 2019-05-17 15:59 | HPC ---
[facility] [address] [address] PAIN MANAGEMENT CONSULTATION Name: BRUNO GAYLE Room #: REG [facility].#: [id number] Admission: 05/13/19 Attend Phys: Taylor Chavez Discharge: Date of : 54 Report #: [id number] THIS REPORT FOR: cc: Bennie Scott MD, Ammar MD Hocker, Taylor CAMP ~ THIS REPORT FOR: //name// DATE OF SERVICE: 05/13/2019 CHIEF COMPLAINT: Low back pain, post-laminectomy syndrome with radiculopathy. HISTORY OF PRESENT ILLNESS: This is a 68-year-old gentleman who returns to the pain clinic today for refill of his oral medications that he helps supplement with his intrathecal pump for his ongoing low back pain and left thigh pain. Today, he is reporting his pain score an 8/10. It is an aching, sharp, tender pain. He believes it is worse with walking, standing and activity, but he feels his medication as well as lying down are very beneficial. He denies any falls or problems with constipation; in fact, he reports he is having some diarrhea since his colonoscopy at the end of last year and has recently started on some new medications to aid in this from his primary care doctor. The patient is here today wearing 3 liters of nasal cannula oxygen, which he has had on in the past, but he still smells very strongly of cigarette smoke. I counseled him as to not have anyone smoke near him when he is wearing oxygen and the risks associated with this. He reports he is not smoking, but his son does smoke who lives with him. ALLERGIES: PEPCID. CURRENT LIST OF MEDICATIONS: Zenpep t.i.d., Protonix, oxycodone 10/325 t.i.d. p.r.n., gabapentin, Singulair, Demadex, albuterol inhaler, Symbicort, Cymbalta, potassium, Peridex, calcium, Voltaren gel, Lipitor, Flexeril and Plavix. PQRS: 1. He has osteoarthritis that is diffuse. He denies any rheumatoid arthritis. 2. Height is 5 feet 9 inches, weight is 188, BMI is 27. 3. Vital signs; blood pressure 128/59, pulse is 59, respirations 16, oxygen level is 97. 4. Pain score is 8/10. 5. Denies dizziness, does use a walker. He has not fallen in the last 3 months. 6. The patient is on Plavix as well as medicines for hypertension. 7. Opioid therapy is greater than 6 weeks; therefore, an opioid signed contract [address] [address] PAIN MANAGEMENT CONSULTATION Name: BRUNO GAYLE Room #: REG [facility]#: [id number] Admission: 05/13/19 Attend Phys: Taylor Chavez Discharge: Date of : 54 Report #: [id number] is on the chart. Risk assessment tool is moderate. Functional assessment is 52/70. 8. Denies recreational use. He is a former smoker and drinks 1 to 2 drinks a day of alcohol. According to the prescription monitoring system, the patient is filling appropriately for his medications. He is due to fill his medications this week. According to the CDC guidelines for his oral medications, he is at 45 MME. PHYSICAL EXAMINATION: GENERAL: This is an alert and orientated 68-year-old gentleman who smells heavily of tobacco smoke. He is wearing 3 liters nasal cannula, rating his pain score at 8/10. HEENT: Pupils are equal and reactive to light. Mucous membranes are moist. Nasal cannula in his nares. EXTREMITIES: Moves independently from the sitting to standing position. He has a slow antalgic gait. LUNGS: Sounds diminished, wearing 3 liters of oxygen. He is dyspneic with activity. MUSCULOSKELETAL: He has tenderness in the lumbosacral segment of his spine. He has bilateral positive straight leg raising, causes increase in pain on the left greater than the right. His gait is antalgic with use of a cane. IMPRESSION: 1. Chronic low back pain with spondylosis and radiculopathy. 2. Osteoarthritis. 3. Peripheral neuropathy. 4. Chronic use of intrathecal medications. 5. Chronic obstructive pulmonary disease, on oxygen therapy. 6. Smoking cessation/counseling. 7. Management of chronic opioid medications under the terms of written opioid agreement. PLAN: 1. We discussed treatment options with the patient today. We again discussed smoking cessation. The patient states he does not smoke, only his son. I encouraged him to tell his son to smoke away from him outside, away from the oxygen and the patient. The patient verbalizes understanding. 2. We are trying to coordinate his oral medications with his intrathecal pump visits so he does not have to make 2 trips here. He is due to have his intrathecal pump filled next week. Hopefully, with the fill after that, he will be on track to fill them at the same time, though today we will refill his oxycodone 10/325, #90 for today, 4-week and 8-week release. Dr. Montez Huber will electronically send these to his pharmacy. 3. The patient will follow up next week for his intrathecal pump refill. [address] [address] PAIN MANAGEMENT CONSULTATION Name: BRUNO GAYLE Room #: [facility]#: [id number] Admission: 05/13/19 Attend Phys: Taylor Chavez Discharge: Date of : 54 Report #: [id number] The patient is seen today under collaboration with Dr. Montez Huber. <ELECTRONICALLY SIGNED> By: Taylor Chavez 05/17/19 [id number] Taylor Chavez /nt
== END ==
LOC: PAIN 06:55
DX: M47.26 Other spondylosis with radiculopathy, lumbar region (principal); M19.90 Unspecified osteoarthritis, unspecified site; G62.9 Polyneuropathy, unspecified; J44.9 Chronic obstructive pulmonary disease, unspecified; Z79.891 Long term (current) use of opiate analgesic

== ENCOUNTER → 2019-05-20 | Outpatient (CLI) | payer OTHER ==
[~2019-05-20] VITALS: Ht 175.3 cm; Wt 86.6 kg
--- NOTE | ~2019-05-20 | HPC ---
[facility] [address] [place] [address] PAIN MANAGEMENT CONSULTATION Name: BRUNO GAYLE Room #: REG [facility].#: [id number] Admission: 05/20/19 Attend Phys: Montez Huber MD Discharge: Date of : 54 Report #: [id number] THIS REPORT FOR: cc: Bennie Scott MD,Bennie Huber,Montez Barrera MD ~ THIS REPORT FOR: //name// CC: Bennie Huber DATE OF SERVICE: 05/20/2019 Followup visit for chronic intractable back pain and management of intrathecal infusion pump. The patient returns to the pain clinic today for refill of his intrathecal infusion pump. He was recently seen by Taylor Chavez less than 1 week ago for medication management. Please review that note for his PQRS review and her outstanding physical exam. He has chronic low back pain with spondylosis and radiculopathy. Osteoarthritis, peripheral neuropathy are also issues. His COPD is getting worse. He is on oxygen therapy around the clock and today, I note that his level of oxygen is 4 liters. He reports that he is no longer smoking, but he smells heavily of smoke and blames it on a relative living with him. He was counseled. PHYSICAL EXAMINATION: GENERAL: Today, he appears a bit dyspneic even with the oxygen. When he moved from sitting to standing position and ambulated just a short distance to the bed, became markedly winded. HEENT: Pupils are equal, round, react to light. EOMs are intact. Mucous membranes are moist. NECK: Supple. CHEST: Clear. Lung sounds are decreased bilaterally. Easily short of breath. MUSCULOSKELETAL: Positive for pain across the lumbosacral segment, pain with movement, flexion, extension and rotation. Bilateral straight leg raising is positive. Sensation is intact. He uses a cane and is a bit unstable. As Taylor noted, he is a fall risk. He has not, however, fallen in the last 3 months. IMPRESSION: 1. Chronic intractable pain with multiple pain generators, particularly lumbar spondylosis with radiculopathy and osteoarthritis. Peripheral neuropathy is also a chronic problem. [facility] [address] [place] [address] PAIN MANAGEMENT CONSULTATION Name: BRUNO GAYLE Room #: REG [facility].#: [id number] Admission: 05/20/19 Attend Phys: Montez Huber MD Discharge: Date of : 54 Report #: [id number] 2. Refill of intrathecal infusion pump and reprogramming. DESCRIPTION OF PROCEDURE: Skin was prepped with ChloraPrep. Skin anesthetized and a 22-gauge non-coring needle advanced into the pump. Old medication removed and discarded and pump was refilled with a combination of hydromorphone, clonidine and fentanyl, which allows for PTM usage. A reprogramming session was performed. His next refill will be scheduled on 08/18. His daily dose if uses all PTM doses will be 8.17 mg of hydromorphone and roughly 173 mcg of fentanyl. Clonidine is at 92 mcg per day. He tolerated this well. His EDELMIRA is 52 months. I am concerned by his progression of pulmonary disease. He appears to be entering into end-stage COPD. By: 14 0000 Montez Huber MD /nt
[2019-05-20 12:49] VITALS: BP 137/73
--- NOTE | 2019-05-20 12:57 | NUR ---
Pain Clinic Assessment: 1. History of Osteoarthritis: 'all over" History of Rheumatoid Arthritis: Not Applicable 2. Height: 5 ft. 9 in. 175.3 cm. Weight: 191.0 lb. oz. 86.637 kg. Patient's BMI: 28.2 3. Vital Signs: BP: 137/73 Pulse: 84 Resp: 18 Temp: 02 Sat: 90 ECG Mon: 4. Pain Intensity: 8 5. Fall Risk: Dizziness: N Needs help standing or walking: N Fallen in the last 3 months: Y Fall risk comments: 6. Patient on Blood Thinner: Clopidogrel Bisulf(Plavix 7. History of Hypertension: Y 8. Opioid Therapy greater than 6 weeks: Y Opiate Contract Signed: 12/13/09 9. Risk Assessment Tool Provided: MOD 10. Functional Assessment Tool: 11. Recreational Drug Use: Never Drug Type: Tobacco Use: Former Smoker Tobacco Type: Amount or Packs/day: How Many Years: Alcohol Use: Yes Frequency: Quant:
== END | disposition home or self-care (01) ==
LOC: PAIN 06:59
DX: Z45.1 Encounter for adjustment and management of infusion pump (principal); G89.29 Other chronic pain; M47.26 Other spondylosis with radiculopathy, lumbar region; G62.9 Polyneuropathy, unspecified; J44.9 Chronic obstructive pulmonary disease, unspecified; Z98.890 Other specified postprocedural states; Z79.899 Other long term (current) drug therapy; Z87.891 Personal history of nicotine dependence

== ENCOUNTER → 2019-08-24 | Outpatient (CLI) | payer OTHER ==
[~2019-08-24] VITALS: Ht 175.3 cm; Wt 90.7 kg
--- NOTE | ~2019-08-24 | HPC ---
[facility] [place] [address] PAIN MANAGEMENT CONSULTATION Name: BRUNO GAYLE Room #: REG [facility] Reji.#: [id number] Admission: 08/24/19 Attend Phys: Montez Huber MD Discharge: Date of : 54 Report #: [id number] THIS REPORT FOR: cc: Bennie Scott MD,Bennie Huber,Montez Barrera MD ~ CC: Bennie Huber DATE OF SERVICE: 08/24/2019 Followup visit for chronic back pain, spondylosis, radiculopathy and osteoarthritis. The patient also has peripheral neuropathy secondary to diabetes. The patient is here today for treatment of his chronic pain. He has multiple problems as described. He has been on intrathecal infusion for a number of years containing both short-acting and long-acting opioid and clonidine. PTM seems to work best when he has the fentanyl and the pump where he can get some more rapid response to the lipophilic opioid. Today, we decided to refill his pump, but we will keep the dose as same and I will continue to provide him with small amount of oxycodone for breakthrough pain. COPD continues to be a big problem for him. He is on around the clock oxygen. He is more dyspneic even at rest. Continues to smoke. I can smell it on him today, although he denies it. PQRS review is performed. He has a history of diffuse osteoarthritis. He says it is "all over." His BMI is stable at 29.5. Vital signs: Blood pressure 125/59, heart rate 75, respirations 14, O2 sat 95 on 3 liters nasal cannula. Pain intensity 8/10. He has not fallen and does not need help walking or standing. He denies dizziness. He is careful because he is on Plavix. He has a scab on his arm from where his dog scratched him. He bled significantly over the last couple of days. He is hypertensive and is on medication provided by primary care. He has been compliant. Opioid agreement was first signed probably 15 years ago, has been re-signed and reviewed on previous visits. He is carefully keeping his medications locked up as he knows he should use one pharmacy one physician. Opioid risk score is 4. His functional assessment score 52/70 suggesting significant impact of his pain on day to day activities. Continues to smoke. He was counseled, but I do not think the patient is going to stop at this point in his life. Drinks alcohol socially and cautiously given his use of opioid medications. He was also counseled about the effects in combination. [address] [address] PAIN MANAGEMENT CONSULTATION Name: BRUNO GAYLE [facility]: [facility] [id number] Admission: 08/24/19 Attend Phys: Montez Huber MD Discharge: Date of : 54 Report #: [id number] IMPRESSION: Chronic intractable pain with radiculopathy and diabetic neuropathy. PROCEDURE: Refill and reprogram intrathecal infusion pump. Skin was prepped with ChloraPrep. A 22-gauge non-coring needle advanced in the pump. Old medication removed and discarded per protocol. Pump refilled with hydromorphone, clonidine and fentanyl. His daily dose is hydromorphone 6.1, clonidine 91, fentanyl 152. He has a PTM volume at 33% increase. Followup visit scheduled in 3 months. I renewed his oxycodone 10/325 at 2 tablets a day. I have reviewed the prescription drug monitoring program and information and there are no unexpected entries. By: [id number] Montez Huber MD /nt
[2019-08-24 10:57] VITALS: BP 125/59
--- NOTE | 2019-08-24 11:16 | NUR ---
Pain Clinic Assessment: 1. History of Osteoarthritis: 'all over" History of Rheumatoid Arthritis: DENIES 2. Height: 5 ft. 9 in. 175.3 cm. Weight: 200.0 lb. oz. 90.720 kg. Patient's BMI: 29.5 3. Vital Signs: BP: 125/59 Pulse: 75 Resp: 14 Temp: 02 Sat: 95 ECG Mon: 4. Pain Intensity: 8 5. Fall Risk: Dizziness: N Needs help standing or walking: N Fallen in the last 3 months: N Fall risk comments: 6. Patient on Blood Thinner: Clopidogrel Bisulf(Plavix 7. History of Hypertension: Y 8. Opioid Therapy greater than 6 weeks: Y Opiate Contract Signed: 12/13/09 9. Risk Assessment Tool Provided: MOD 10. Functional Assessment Tool: 11. Recreational Drug Use: Never Drug Type: Tobacco Use: Former Smoker Tobacco Type: Amount or Packs/day: How Many Years: Alcohol Use: Yes Frequency: Monthly Quant:
== END | disposition home or self-care (01) ==
LOC: PAIN 06:55
DX: Z45.1 Encounter for adjustment and management of infusion pump (principal); G89.29 Other chronic pain; M47.26 Other spondylosis with radiculopathy, lumbar region; E11.40 Type 2 diabetes mellitus with diabetic neuropathy, unspecified; M19.90 Unspecified osteoarthritis, unspecified site; Z98.890 Other specified postprocedural states; Z79.891 Long term (current) use of opiate analgesic

== ENCOUNTER → 2019-11-29 | Outpatient (CLI) | payer OTHER ==
[~2019-11-29] VITALS: Ht 175.3 cm; Wt 84.7 kg
[~2019-11-29] MED LIST changes: +OMEPRAZOLE20 M2 PO; +PERCOCET 10-321 EAC1 PO
--- NOTE | ~2019-11-29 | HPC ---
[facility] [address] [place] [address] PAIN MANAGEMENT CONSULTATION Name: BRUNO GAYLE Room #: REG [facility].#: [id number] Admission: 11/29/19 Attend Phys: Montez Huber MD Discharge: Date of : 54 Report #: [id number] THIS REPORT FOR: cc: Bennie Scott MD,Bennie Huber,Montez Barrera MD ~ CC: Bennie Huber DATE OF SERVICE: 11/29/2019 Followup visit for chronic pain, post-laminectomy syndrome. The patient returns to pain clinic today for refill and reprogram of his intrathecal pump. He is doing okay, but really from a family situation he is not getting along well. 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 His son is living with him as well as his grandson. He and his are tired of having them under foot and he would like to move elsewhere, perhaps [facility]. All of that is on top of his usual state of disability and debility and he complains bitterly of pain at an 8/10. Intrathecal pump is helpful. I provided him also with some oxycodone to help with pain in between. He is grateful for the additional pain relief provided by the medicines, denies side effects, carefully safeguards his medications and has promised me as outlined in his opioid agreement that he keeps his medications away from others. He denies side effects from his oral medications and is also doing fine with his intrathecal medications without side effects. He has a PTM which he uses and has some fentanyl in his pump, which I think has been helpful, given its lipophilic properties and its ability to work quickly. He has COPD. He is on oxygen. This is affecting him with a number of problems, shortness of breath and dyspnea on exertion as well as energy. He is also on Plavix. PQRS: Positive for diffuse osteoarthritis. BMI is 27.6, blood pressure 108/53, heart rate 65, respirations 14, O2 sat 99. Pain intensity is 8/10 and he needs help standing and walking. He has fallen once in the last 3 months. We talked about the importance of being cautious in all of his movements, given his shortness of breath, his back and leg pain. He is on Plavix for DVT and has a history of hypertension. Opioid agreement was first signed in 2009 and has been re-signed and reviewed at multiple visits. He has some moderate risk for addiction. I provided with oxycodone. His MME is 45. Those medicines were renewed for him today in between. I would like to avoid increases in his intrathecal pump at this time. The patient continues to smoke and was counseled. He at one time smoked [address] [address] PAIN MANAGEMENT CONSULTATION Name: BRUNO GAYLE Room #: REG CL Narendra#: [id number] Admission: 11/29/19 Attend Phys: Montez Huber MD Discharge: Date of : 54 Report #: [id number] per day. This has led to his COPD and many of his other problems. We discussed it today. He also have an occasional glass of alcohol. I have made sure that he understands that this can be additive with his opioid medications. IMPRESSION: 1. Chronic intractable back pain, post-laminectomy syndrome. 2. Management of intrathecal infusion pump with refill and reprogramming session. 3. Management of high risk medications under terms of written opioid agreement. 4. Chronic obstructive pulmonary disease, on chronic oxygen therapy. 5. Peripheral neuropathy. PROCEDURE: Refill and reprogramming of intrathecal pump. Skin was prepped with ChloraPrep. A 22-gauge non-coring needle advanced in the pump. Old medication removed and discarded. Pump was then refilled with medication and a reprogramming session without changing dose was performed. His next refill is scheduled for 03/01/2020. His daily dose will be hydromorphone maximum 8.1, fentanyl maximum 203, clonidine maximum 122. Oral medications were sent electronically. I reviewed his prescription sent previously on the prescription drug monitoring program prior to sending and there are no unexpected entries. By: [id number] Montez Huber MD /nt
[2019-11-29 13:02] VITALS: BP 108/53
--- NOTE | 2019-11-29 13:22 | NUR ---
Pain Clinic Assessment: 1. History of Osteoarthritis: 'all over" History of Rheumatoid Arthritis: DENIES 2. Height: 5 ft. 9 in. 175.3 cm. Weight: 186.4 lb. oz. 84.664 kg. Patient's BMI: 27.6 3. Vital Signs: BP: 108/53 Pulse: 65 Resp: 14 Temp: 02 Sat: 99 ECG Mon: 4. Pain Intensity: 8 5. Fall Risk: Dizziness: N Needs help standing or walking: Y Fallen in the last 3 months: Y Fall risk comments: 6. Patient on Blood Thinner: Clopidogrel Bisulf(Plavix 7. History of Hypertension: Y 8. Opioid Therapy greater than 6 weeks: Y Opiate Contract Signed: 12/13/09 9. Risk Assessment Tool Provided: MOD 10. Functional Assessment Tool: 11. Recreational Drug Use: Never Drug Type: Tobacco Use: Former Smoker Tobacco Type: Cigarettes Amount or Packs/day: 2 How Many Years: 40 Alcohol Use: Yes Frequency: Monthly Quant:
== END | disposition home or self-care (01) ==
LOC: PAIN 07:09
PROVIDERS: ATTEND Anesthesiology Pain Medicine
DX: G89.29 Other chronic pain (principal); M96.1 Postlaminectomy syndrome, not elsewhere classified; J44.9 Chronic obstructive pulmonary disease, unspecified; G62.9 Polyneuropathy, unspecified; Z79.899 Other long term (current) drug therapy; Z88.8 Allergy status to other drugs, medicaments and biological substances; Z98.890 Other specified postprocedural states; Z87.891 Personal history of nicotine dependence

== ENCOUNTER → 2020-03-13 | Outpatient (CLI) | payer OTHER ==
[~2020-03-13] VITALS: Ht 175.3 cm; Wt 79.4 kg
[2020-03-13 13:11] VITALS: BP 109/57
--- NOTE | 2020-03-13 13:21 | NUR ---
Pain Clinic Assessment: 1. History of Osteoarthritis: HANDS KNEES BACK ANKLES NECK ELBOWS FEET History of Rheumatoid Arthritis: DENIES 2. Height: 5 ft. 9 in. 175.3 cm. Weight: 175.0 lb. oz. 79.380 kg. Patient's BMI: 25.8 3. Vital Signs: BP: 109/57 Pulse: 66 Resp: 14 Temp: 02 Sat: 94 ECG Mon: 4. Pain Intensity: 8 5. Fall Risk: Dizziness: N Needs help standing or walking: Y Fallen in the last 3 months: N Fall risk comments: 6. Patient on Blood Thinner: Clopidogrel Bisulf(Plavix 7. History of Hypertension: Y 8. Opioid Therapy greater than 6 weeks: Y Opiate Contract Signed: 12/13/09 9. Risk Assessment Tool Provided: MOD 10. Functional Assessment Tool: 11. Recreational Drug Use: Never Drug Type: Tobacco Use: Former Smoker Tobacco Type: Amount or Packs/day: How Many Years: Alcohol Use: Yes Frequency: Weekly Quant: 2
== END | disposition home or self-care (01) ==
LOC: PAIN 06:50
PROVIDERS: ATTEND Anesthesiology Pain Medicine
DX: Z45.1 Encounter for adjustment and management of infusion pump (principal); G89.29 Other chronic pain; M96.1 Postlaminectomy syndrome, not elsewhere classified; I10 Essential (primary) hypertension; G62.9 Polyneuropathy, unspecified; J44.9 Chronic obstructive pulmonary disease, unspecified; Z98.890 Other specified postprocedural states; Z79.899 Other long term (current) drug therapy; Z79.891 Long term (current) use of opiate analgesic; Z87.891 Personal history of nicotine dependence

== ENCOUNTER → 2020-06-29 | Outpatient (CLI) | payer OTHER ==
[~2020-06-29] VITALS: Ht 175.3 cm; Wt 69.7 kg
[2020-06-29 13:25] VITALS: BP 115/63
--- NOTE | 2020-06-29 13:35 | NUR ---
Pain Clinic Assessment: 1. History of Osteoarthritis: HANDS KNEES BACK ANKLES NECK ELBOWS FEET History of Rheumatoid Arthritis: DENIES 2. Height: 5 ft. 9 in. 175.3 cm. Weight: 153.6 lb. oz. 69.672 kg. Patient's BMI: 22.7 3. Vital Signs: BP: 115/63 Pulse: 79 Resp: 14 Temp: 02 Sat: 97 ECG Mon: 4. Pain Intensity: 8 5. Fall Risk: Dizziness: N Needs help standing or walking: Y Fallen in the last 3 months: Y Fall risk comments: 6. Patient on Blood Thinner: Clopidogrel Bisulf(Plavix 7. History of Hypertension: Y 8. Opioid Therapy greater than 6 weeks: Y Opiate Contract Signed: 12/13/09 9. Risk Assessment Tool Provided: MOD 10. Functional Assessment Tool: 11. Recreational Drug Use: Never Drug Type: Tobacco Use: Former Smoker Tobacco Type: Amount or Packs/day: How Many Years: Alcohol Use: Yes Frequency: Weekly Quant: 2
== END | disposition home or self-care (01) ==
LOC: PAIN 06:45
PROVIDERS: ATTEND Anesthesiology Pain Medicine
DX: G89.29 Other chronic pain (principal); M19.90 Unspecified osteoarthritis, unspecified site; M47.816 Spondylosis without myelopathy or radiculopathy, lumbar region; G62.9 Polyneuropathy, unspecified; J44.9 Chronic obstructive pulmonary disease, unspecified; Z87.891 Personal history of nicotine dependence; Z72.89 Other problems related to lifestyle; Z79.899 Other long term (current) drug therapy; Z88.8 Allergy status to other drugs, medicaments and biological substances

== ENCOUNTER → 2020-10-09 | Outpatient (CLI) | payer OTHER ==
[~2020-10-09] VITALS: Ht 175.3 cm; Wt 66.7 kg
[~2020-10-09] MED LIST changes: +FLOMAX0.4 MG PO
[2020-10-09 14:46] VITALS: BP 101/60
--- NOTE | 2020-10-09 15:00 | NUR ---
Pain Clinic Assessment: 1. History of Osteoarthritis: HANDS KNEES BACK ANKLES NECK ELBOWS FEET History of Rheumatoid Arthritis: DENIES 2. Height: 5 ft. 9 in. 175.3 cm. Weight: 147.0 lb. oz. 66.679 kg. Patient's BMI: 21.7 3. Vital Signs: BP: 101/60 Pulse: 66 Resp: 14 Temp: 02 Sat: 98 ECG Mon: 4. Pain Intensity: 9 5. Fall Risk: Dizziness: N Needs help standing or walking: Y Fallen in the last 3 months: N Fall risk comments: 6. Patient on Blood Thinner: Clopidogrel Bisulf(Plavix 7. History of Hypertension: Y 8. Opioid Therapy greater than 6 weeks: Y Opiate Contract Signed: 12/13/09 9. Risk Assessment Tool Provided: MOD 10. Functional Assessment Tool: 11. Recreational Drug Use: Never Drug Type: Tobacco Use: Former Smoker Tobacco Type: Amount or Packs/day: How Many Years: Alcohol Use: Yes Frequency: Weekly Quant: 2
== END | disposition home or self-care (01) ==
LOC: PAIN 09:45
PROVIDERS: ATTEND Anesthesiology Pain Medicine
DX: Z45.1 Encounter for adjustment and management of infusion pump (principal); M47.26 Other spondylosis with radiculopathy, lumbar region; G89.29 Other chronic pain; J44.9 Chronic obstructive pulmonary disease, unspecified; M19.90 Unspecified osteoarthritis, unspecified site; G62.9 Polyneuropathy, unspecified; Z87.891 Personal history of nicotine dependence; Z98.890 Other specified postprocedural states; Z79.899 Other long term (current) drug therapy; Z88.8 Allergy status to other drugs, medicaments and biological substances

== ENCOUNTER → 2021-02-01 | Outpatient (CLI) | payer OTHER ==
[~2021-02-01] VITALS: Ht 175.3 cm; Wt 69.4 kg
[2021-02-01 13:20] VITALS: BP 123/76
== END | disposition home or self-care (01) ==
LOC: PAIN 11-30 13:24
PROVIDERS: ATTEND Clinical Nurse Specialist Adult Health
DX: Z45.1 Encounter for adjustment and management of infusion pump (principal); G89.29 Other chronic pain; M19.90 Unspecified osteoarthritis, unspecified site; Z87.891 Personal history of nicotine dependence; Z72.89 Other problems related to lifestyle

== ENCOUNTER → 2021-05-14 | Outpatient (CLI) | payer OTHER ==
[~2021-05-14] VITALS: Ht 175.3 cm; Wt 74.8 kg
[2021-05-14 14:33] VITALS: BP 105/66
--- NOTE | 2021-05-14 14:45 | NUR ---
Pain Clinic Assessment: 1. History of Osteoarthritis: HANDS KNEES BACK ANKLES NECK ELBOWS FEET History of Rheumatoid Arthritis: DENIES 2. Height: 5 ft. 9 in. 175.3 cm. Weight: 164.8 lb. oz. 74.753 kg. Patient's BMI: 24.3 3. Vital Signs: BP: 105/66 Pulse: 90 Resp: 14 Temp: 02 Sat: 96 ECG Mon: 4. Pain Intensity: 8 5. Fall Risk: Dizziness: N Needs help standing or walking: Y Fallen in the last 3 months: N Fall risk comments: 6. Patient on Blood Thinner: Clopidogrel Bisulf(Plavix 7. History of Hypertension: Y 8. Opioid Therapy greater than 6 weeks: Y Opiate Contract Signed: 12/13/09 9. Risk Assessment Tool Provided: MOD 10. Functional Assessment Tool: 11. Recreational Drug Use: Never Drug Type: Tobacco Use: Former Smoker Tobacco Type: Amount or Packs/day: How Many Years: Alcohol Use: No Frequency: Quant:
== END | disposition home or self-care (01) ==
LOC: PAIN 12:54
PROVIDERS: ATTEND Anesthesiology Pain Medicine
DX: Z45.1 Encounter for adjustment and management of infusion pump (principal); G89.29 Other chronic pain; M54.59 Other low back pain; M47.22 Other spondylosis with radiculopathy, cervical region; J44.9 Chronic obstructive pulmonary disease, unspecified; M19.90 Unspecified osteoarthritis, unspecified site; G62.9 Polyneuropathy, unspecified; Z98.890 Other specified postprocedural states; Z79.899 Other long term (current) drug therapy; Z87.891 Personal history of nicotine dependence